=== PATIENT | female | born 1985 | race Caucasian/White ===

== ENCOUNTER 2018-03-21 21:47 | Emergency (ER) | payer OTHER ==
[2018-03-21 22:00] VITALS: BP 110/60; PULSE 96; TEMP 101.1; BMI 24.0
--- NOTE | 2018-03-21 22:31 | PDOC ---
History of Present Illness - General Chief Complaint: Urinary Problem Stated Complaint: COLD SYMPTOMS - History of Present Illness Initial Comments: 32 -year-old female presents for evaluation of 2 weeks of lower abdominal pain and right-sided back pain. He has no comorbidities 03/21/18 22:30 Past History - Past Medical History Allergies/Adverse Reactions: Allergies Allergy/AdvReac Type Severity Reaction Status Date / Time No Known Allergies Allergy Verified 03/21/18 21:54 Home Medications: Ambulatory Orders Ferrous Sulfate [Feosol] 1 tab PO DAILY 12/31/15 Vit/Iron Fum/Folic AC [ Tablet] 1 each PO DAILY 12/31/15 Acetaminophen [Tylenol .Regular Strength -] 650 mg PO Q4H PRN #0 tablet Ferrous Sulfate [Feosol] 325 mg PO BID ud 01/05/16 Ibuprofen [Motrin -] 600 mg PO Q4H PRN #30 tablet 01/05/16 Asthma: No Cancer: No Cardiac Disorders: No COPD: No Diabetes: No HTN: No Seizures: No Thyroid Disease: No - Immunization History Immunization Up to Date: No - Suicide/Smoking/Psychosocial Hx Smoking History: Never smoked Have you smoked in the past 12 months: No Information on smoking cessation initiated: No Hx Alcohol Use: No Drug/Substance Use Hx: No Substance Use Type: None Hx Substance Use Treatment: No Review of Systems - Review of Systems : Yes: Flank Pain All Other Systems: Reviewed and Negative *Physical Exam - Vital Signs Last Vital Signs Temp Pulse Resp BP Pulse Ox 101.1 F H 96 H 18 110/60 100 03/21/18 21:54 03/21/18 21:54 03/21/18 21:54 03/21/18 21:54 03/21/18 21:54 - Physical Exam Comments: HEAD: NC/AT EYES: Conjuntiva clear Ears: Canals and TM's normal NOSE: No d/c THROAT: Moist mucous membrances, oral pharanx clear, uvula midline NECK: Supple without adenopathy CARDIAC: S1 S2 LUNGS: CTA Full and Equal breath sounds ABDOMEN: Soft NT ND MS: Full ROM in all joints without edema NEUROLOGIC: No gross sensory or motor deficits, NVID SKIN: Normal color and temperature no lesions or rashes 03/21/18 22:31 *DC/Admit/Observation/Transfer Diagnosis at time of Disposition: Dysuria - Referrals Referrals: NogueraCoughlan,Melissa, MD [Primary Care Provider] - - Patient Instructions - Post Discharge Activity
[2018-03-21 22:38] LABS: HCG,QUALITATIVE URINE Negative
[2018-03-21 22:41] LABS: URINE APPEARANCE CLOUDY; URINE BILIRUBIN NEGATIVE (<2.0 mg/dL); URINE COLOR AMBER; URINE GLUCOSE (UA) NEGATIVE (NEGATIVE); URINE KETONE NEGATIVE (NEGATIVE); URINE NITRITE NEGATIVE (NEGATIVE); URINE PROTEIN NEGATIVE (NEGATIVE); URINE UROBILINOGEN NEGATIVE mg/dL (0.2-1.0)
[2018-03-21 22:50] LABS: URINE LEUK ESTERASE 1+ (NEGATIVE)
[2018-03-21 22:51] LABS: EPI CELLS RARE /HPF (FEW); URINE BACTERIA RARE /hpf (NONE SEEN); URINE MUCUS RARE
[2018-03-21] MEDS ORDERED: SULFAMETHOXAZOLE/TRIMETHOPRIM 800MG/160MG D.S. TABLET PO ONE (22:58)
[2018-03-21] MEDS ORDERED: ACETAMINOPHEN 500 MG TABLET (FP) PO ONE (22:59)
[2018-03-21] MEDS ORDERED: ACETAMINOPHEN 325 MG TABLET (FP) ONE (23:06)
[2018-03-21] MEDS ORDERED: SULFAMETHOXAZOLE/TRIMETHOPRIM 800MG/160MG D.S. TABLET ONE (23:06)
== END 2018-03-21 23:13 | disposition home or self-care (01) ==
LOC: JERFT 21:47
DX: N39.0 Urinary tract infection, site not specified (principal)
CPT/HCPCS: 81003; 81015; 84703; 87086; 87186; 99281-25

== ENCOUNTER 2024-05-17 10:55 | Emergency (ER) | payer OTHER ==
[2024-05-17 11:18] VITALS: BP 102/61; PULSE 58; RESP 19; TEMP 98.8; BMI 26.1
[2024-05-17 12:24] LABS: PH,URINE 7.5 (5.0-8.0); URINE APPEARANCE CLEAR; URINE BILIRUBIN NEGATIVE (NEGATIVE); URINE COLOR YELLOW; URINE GLUCOSE (UA) NEGATIVE (NEGATIVE); URINE KETONE NEGATIVE (NEGATIVE); URINE LEUK ESTERASE NEGATIVE (NEGATIVE); URINE NITRITE NEGATIVE (NEGATIVE); URINE PROTEIN NEGATIVE (NEGATIVE); URINE UROBILINOGEN 0.2 mg/dL (0.2-1.0)
[2024-05-17 12:28] LABS: HCG,QUALITATIVE URINE Negative
== END 2024-05-17 12:54 | disposition home or self-care (01) ==
LOC: JER 10:55
DX: R35.0 Frequency of micturition (principal)
CPT/HCPCS: 81003; 84703; 87086; 99283-25